=== PATIENT | male | born 1985 | race Caucasian/White ===

== ENCOUNTER 2017-03-30 22:43 | Emergency (ER) | payer OTHER ==
[2017-03-30] MEDS ORDERED: Ketorolac Tromethamine 30 MG/ML VIAL ONE (23:09)
[2017-03-30] MEDS ORDERED: Sodium Chloride 0.9% 1,000 ML ONE (23:09)
[2017-03-30 23:20] LABS: Bilirubin Small (Negative); Blood, Urine Negative (Negative); Clarity Clear (Clear); Glucose, Urine (Dipstick) Negative (Negative); Leukocyte Negative (Negative); Nitrite Negative (Negative); Protein, Urine (Dipstick) Negative (Neg-Trace); Specific Gravity, Urine 1.015 (1.005-1.030); pH, Urine 7.5 (5.0-9.0)
--- NOTE | 2017-03-30 23:39 | CT ---
CT OF THE ABDOMEN AND PELVIS 03/30/17 PROVIDED CLINICAL HISTORY: Suprapubic abdominal pain. FINDINGS: Comparison is made with the study dated 12/30/15. The visualized lung bases appear free of significant opacity. There is a diffuse fatty infiltration o f the liver. There is a nonobstructing 3 to 4 mm calculus involving the inferior pole of the right ki dney. No definite additional urinary tract calculi are evident. The solid abdominal organs are subopt imally evaluated without IV contrast but demonstrates and otherwise unremarkable unenhanced CT appear ance. There is no bowel dilatation, inflammatory fat stranding, free fluid or free air apparent. The append ix appears normal. Occasional atherosclerotic vascular calcifications are seen. The osseous structures demonstrate no concerning osteoblastic or osteolytic lesions. IMPRESSION: 1. Nonobstructing inferior pole right renal calculus. 2. Fatty infiltration of the liver. POS: [facility]
[2017-03-30 23:42] LABS: ALT (SGPT) 61 U/L (8-55); AST (SGOT) 73 U/L (5-34); Albumin 3.9 g/dL (3.5-5.0); Alkaline Phosphatase 129 U/L (40-150); Anion Gap 15 mmol/L (10-20); BUN (Urea Nitrogen) Less than 4 mg/dL (8.9-20.6); Bilirubin, Total 0.9 mg/dL (0.2-1.2); Calc. Creatinine Clearance 0 mL/min (70-130); Calcium 9.4 mg/dL (7.8-10.44); Carbon Dioxide 25 mmol/L (22-29); Chloride 99 mmol/L (98-107); Estimated GFR-MDRD Greater than 90; Globulin 3.7 g/dL (2.4-3.5); Glucose 94 mg/dL (70-105); Potassium 3.7 mmol/L (3.5-5.1); Protein, Total 7.6 g/dL (6.0-8.3); Sodium 135 mmol/L (136-145)
[2017-03-30 23:46] LABS: #Basophils 0.1 thou/uL (0.0-0.2); #Eosinphils 0.5 thou/uL (0.0-0.7); #Lymphocytes 2.7 thou/uL (1.20-3.40); #Monocytes 0.9 thou/uL (0.11-0.59); #Neutrophils 5.7 thou/uL (1.40-6.50); %Basophils 1.4 % (0.0-1.0); %Lymphocytes 27.6 % (21.0-51.0); %Monocytes 8.7 % (0.0-10.0); %Neutrophils 57.3 % (42.0-75.0); Hemoglobin 16.4 g/dL (14.0-18.0); MDiff Complete? YES; Macrocytosis SLIGHT = 6-15 cells (100X) (0-5/hpf); Mean Corpuscular HGB CONC 34.5 g/dL (32.0-36.0); Mean Corpuscular Hemoglobin 35.2 pg (27.0-31.0); Mean Platelet Volume 8.3 fL (7.4-10.4); PLT Morphology Comment Appears Adequate; Platelet Count 278 thou/uL (130-400); RBC Distribution Width 11.9 % (11.5-14.5); Red Blood Cell (RBC) Count 4.65 mill/uL (4.70-6.10); White Blood Cell (WBC) Count 9.9 thou/uL (4.8-10.8)
== END 2017-03-31 00:08 | disposition home or self-care (01) ==
LOC: NAV ERS 22:43
DX: R10.31 Right lower quadrant pain (principal); R10.32 Left lower quadrant pain; R10.33 Periumbilical pain; R11.2 Nausea with vomiting, unspecified; F17.220 Nicotine dependence, chewing tobacco, uncomplicated
CPT/HCPCS: 74176; 81003; 87086; 96361; 96374; J1885; J7050

== ENCOUNTER 2017-04-01 19:36 | Emergency (ER) | payer OTHER | END 2017-04-01 20:20 | disposition home or self-care (01) | LOC: NAV ERS 19:36 | DX: M79.652 Pain in left thigh (principal); M79.651 Pain in right thigh; R20.2 Paresthesia of skin; F17.220 Nicotine dependence, chewing tobacco, uncomplicated; Z79.1 Long term (current) use of non-steroidal anti-inflammatories (NSAID); Z79.899 Other long term (current) drug therapy | CPT/HCPCS: 99283 ==

== ENCOUNTER 2024-05-09 16:04 | Outpatient (CLI) | payer OTHER | END 2024-05-09 16:05 | disposition home or self-care (01) | LOC: NAV RAD 16:04 | PROVIDERS: ATTEND Nurse Practitioner Family | DX: M79.672 Pain in left foot (principal) ==